=== PATIENT | female | born 1960 | race Caucasian/White ===

== ENCOUNTER 2017-06-17 11:50 | Emergency (ER) | payer BC, OTHER ==
[2017-06-17 13:16] VITALS: BP 128/86
--- NOTE | 2017-06-17 13:38 | UC ---
UC General HPI - HPI Summary HPI Summary: pt is c/o a cough and now fever, achy and congested. no cp or sob. no hx asthma. - History of Current Complaint Chief Complaint: UCRespiratory Stated Complaint: FEVER/COUGH/CURT/ACHY Time Seen by Provider: 06/17/17 13:20 Hx Obtained From: Patient Onset/Duration: Sudden Onset Timing: Constant Pain Intensity: 2 Aggravating: nothing Alleviating: nothing Associated Signs & Symptoms: Positive: Cough, Fever, Headache. Negative: Abdominal Pain, Chest Pain, Diarrhea, Dysuria, Nausea, SOB, Wheezing - Allergy/Home Medications Allergies/Adverse Reactions: Allergies Allergy/AdvReac Type Severity Reaction Status Date / Time IV CONTRAST Allergy Difficulty Uncoded 06/17/17 13:10 Breathing PMH/Surg Hx/FS Hx/Imm Hx Respiratory History: Pneumonia - Surgical History Surgical History: Yes Surgery Procedure, Year, and Place: . Hysterectomy - Family History Known Family History: Positive: Cardiac Disease, Other - [place] - Social History Occupation: Employed Full-time Lives: With Family Alcohol Use: Occasionally Substance Use Type: None Smoking Status (MU): Never Smoked Tobacco - Immunization History Most Recent Influenza Vaccination: none this year Vaccination Up to Date: Yes Review of Systems Constitutional: Fever, Chills, Fatigue, Other - bodyaches Skin: Negative Eyes: Negative ENT: Sinus Congestion Respiratory: Cough Cardiovascular: Negative Gastrointestinal: Negative Genitourinary: Negative Motor: Negative Neurovascular: Negative Musculoskeletal: Negative Neurological: Negative Psychological: Negative Is Patient Immunocompromised?: No All Other Systems Reviewed And Are Negative: Yes Physical Exam Triage Information Reviewed: Yes Appearance: Ill-Appearing Vital Signs: Initial Vital Signs Temp 100.9 F 06/17/17 13:10 Pulse 89 06/17/17 13:10 Resp 16 06/17/17 13:10 BP 128/86 06/17/17 13:10 Pulse Ox 100 06/17/17 13:10 Vital Signs Reviewed: Yes Eye Exam: Normal ENT: Positive: Pharynx normal, Nasal congestion, TMs normal. Negative: Sinus tenderness Respiratory: Positive: Chest non-tender, Lungs clear, Normal breath sounds, No respiratory distress, Other: - cough is congested Cardiovascular: Positive: RRR, No Murmur, Pulses Normal Abdomen Description: Positive: Nontender, No Organomegaly, Soft Bowel Sounds: Positive: Present Neurological: Positive: Alert Psychological: Positive: Age Appropriate Behavior Skin Exam: Normal Diagnostics - Laboratory Diagnostic Studies Completed/Ordered: Influenza B + Course/Dx - Course Course Of Treatment: + influenza B, will tx tamiflu - Differential Dx - Multi-Symptom Provider Diagnoses: Influenza B Discharge - Discharge Plan Condition: Stable Disposition: HOME Prescriptions: Oseltamivir CAP* [Tamiflu CAP*] 75 mg PO BID 5 Days #10 cap Patient Education Materials: Influenza (DC) Referrals: Michelle Argueta MD [Primary Care Provider] - 5 Days
== END 2017-06-17 14:17 | disposition home or self-care (01) ==
LOC: UCCORT 11:50
DX: J10.1 Influenza due to other identified influenza virus with other respiratory manifestations (principal)
CPT/HCPCS: 87502; 99212; G0463